=== PATIENT | female | born 1970 | race American Indian/Alaskan Native ===

== ENCOUNTER 2019-09-17 18:56 | Emergency (ER) | payer SELFPAY ==
[2019-09-17 19:20] VITALS: BP 117/47
--- NOTE | 2019-09-17 19:24 | Emergency Department Report ---
Chief Complaint: Upper Respiratory Infection Stated Complaint: FLY SYM/COUGH/VOMIT/HEADACHE Time Seen by Provider: 09/17/19 19:22 - ROS Review of Systems: Ms. Vallejo presents with hoarse voice, productive cough, runny nose. MSE performed. Provided supportive care instruction and return precautions. - Exam Vital Signs: Vital Signs 09/17/19 19:19 Temperature 98.0 F Pulse Rate 67 Respiratory 15 Rate Blood Pressure 117/47 O2 Sat by Pulse 99 Oximetry MSE screening note: Focused history and physical exam performed. Due to findings the following was ordered: ED Disposition for MSE Clinical Impression: Encounter for medical screening examination Disposition: Z- MED SCREENING EXAM-LEFT Condition: Stable Forms: Work/School Release Form(ED)
== END 2019-09-17 19:54 | disposition left against medical advice (07) ==
LOC: ED 18:56
DX: R49.0 Dysphonia (principal); R05 Cough; J34.89 Other specified disorders of nose and nasal sinuses
CPT/HCPCS: 99282

== ENCOUNTER 2021-06-17 08:34 | Inpatient (IN) | payer SELFPAY ==
--- NOTE | 2021-06-17 09:20 | Emergency Department Report ---
HPI - General Chief Complaint: Chest Pain Time Seen by Provider: 06/17/21 08:49 - HPI HPI: Room 21 The patient is a 51-year-old female present with a chief complaint of chest pain. The patient states she went to sleep last night at [address] [facility] when she was awakened this morning by her daughter screaming. The patient states she awakened and ran downstairs and by the time she got downstairs she developed left-sided chest pain shortness of breath causing her to fall to the floor. Patient denies loss of consciousness. Patient admits to nausea without vomiting and denies diaphoresis with her chest pain. Patient currently gives her chest pain score 6/10. The patient states she has received 2 vaccinations against Covid receiving her second vaccination sometime in January. Per EMS the patient was found to be hypoxic to 89% on room air upon their arrival. There is a question of whether or not the patient was having runs of V. tach and/or A. fib with EMS but EMS was unable to capture it by rhythm strip. The patient is currently satting 100% on room air in the ED ED Past Medical Hx - Past Medical History Additional medical history: thyroid cancer status post thyroidectomy. Hypothyroidism - Surgical History Additional Surgical History: Hysterectomy, Thyriodectomy - Family History Family history: no significant - Social History Smoking Status: Former Smoker (None x5-year) Substance Use Type: None (Denies illicit drug use) ED Review of Systems ROS: Stated complaint: CHEST PAIN Other details as noted in HPI Constitutional: denies: diaphoresis Eyes: denies: eye pain ENT: denies: throat pain Respiratory: shortness of breath Cardiovascular: chest pain Endocrine: no symptoms reported Gastrointestinal: nausea. denies: vomiting Genitourinary: denies: dysuria Musculoskeletal: denies: back pain Neurological: denies: headache Physical Exam - Physical Exam Vital Signs: Vital Signs 06/17/21 08:39 Temperature 97.8 F Pulse Rate 140 H Respiratory 24 Rate Blood Pressure 136/86 [Right] O2 Sat by Pulse 90 Oximetry Physical Exam: GENERAL: The patient is well-developed well-nourished female lying on stretcher not appearing to be in acute distress. [] HEENT: Normocephalic. Atraumatic. Extraocular motions are intact. Patient has moist mucous membranes. NECK: Supple. Trachea midline CHEST/LUNGS: Clear to auscultation. There is no respiratory distress noted. HEART/CARDIOVASCULAR: Regular. There is no tachycardia. There is no gallop rub or murmur. ABDOMEN: Abdomen is soft, nontender. Patient has normal bowel sounds. There is no abdominal distention. SKIN: There is no rash. There is no edema. There is no diaphoresis. NEURO: The patient is awake, alert, and oriented. The patient is cooperative. The patient has no focal neurologic deficits. The patient has normal speech. GCS 15 MUSCULOSKELETAL:There is no evidence of acute injury. ED Course Vital Signs 06/17/21 08:39 Temperature 97.8 F Pulse Rate 140 H Respiratory 24 Rate Blood Pressure 136/86 [Right] O2 Sat by Pulse 90 Oximetry ED Medical Decision Making - Lab Data Result diagrams: 06/17/21 09:19 06/17/21 09:19 Laboratory Tests 06/17/21 06/17/21 06/17/21 09:19 09:19 09:19 WBC 6.0 RBC 4.38 Hgb 12.4 Hct 37.5 MCV 86 MCH 28 MCHC 33 RDW 15.8 H Plt Count 246 Lymph % (Auto) 24.2 [place] % (Auto) 5.8 Eos % (Auto) 1.7 Baso % (Auto) 1.0 Lymph # (Auto) 1.5 [place] # (Auto) 0.3 Eos # (Auto) 0.1 Baso # (Auto) 0.1 Seg Neutrophils % 67.3 Seg Neutrophils # 4.0 D-Dimer 227.63 Sodium 144 Potassium 4.1 Chloride 110.3 H Carbon Dioxide 19 L Anion Gap 19 BUN 14 Creatinine 0.8 Estimated GFR > 60 BUN/Creatinine Ratio 18 Glucose 95 Calcium 8.7 Total Creatine Kinase 98 CK-MB (CK-2) 1.5 CK-MB (CK-2) Rel Index 1.5 Troponin T < 0.010 TSH Free T4 06/17/21 09:19 WBC RBC Hgb Hct MCV MCH MCHC RDW Plt Count Lymph % (Auto) [place] % (Auto) Eos % (Auto) Baso % (Auto) Lymph # (Auto) [place] # (Auto) Eos # (Auto) Baso # (Auto) Seg Neutrophils % Seg Neutrophils # D-Dimer Sodium Potassium Chloride Carbon Dioxide Anion Gap BUN Creatinine Estimated GFR BUN/Creatinine Ratio Glucose Calcium Total Creatine Kinase CK-MB (CK-2) CK-MB (CK-2) Rel Index Troponin T TSH 0.094 L Free T4 2.20 H - EKG Data -: EKG Interpreted by Me EKG shows normal: sinus rhythm Rate: bradycardia (58 bpm) - EKG Data When compared to previous EKG there are: previous EKG unavailable Interpretation: nonspecific ST-T wave sai (T wave inversion lead III) - Radiology Data Radiology results: report reviewed (Chest x-ray), image reviewed (Chest x-ray) interpreted by me: Chest x-ray-no definite focal infiltrates, no pneumothorax [facility] [address] [place] [address] XRay Report Signed Patient: ERNIE CASTREJON MR#: [id number] : 1970 Acct:[id number] Age/Sex: 51 / F ADM Date: 06/17/21 Loc: ED Attending Dr: Ordering Physician: GISELLE FRANCO MD Date of Service: 06/17/21 Procedure(s): XR chest 1V ap Accession Number(s): [id number] cc: GISELLE FRANCO MD Fluoro Time In Minutes: CHEST 1 VIEW INDICATION / CLINICAL INFORMATION: chest pain. COMPARISON: None available. FINDINGS: SUPPORT DEVICES: None. HEART / MEDIASTINUM: No significant abnormality. LUNGS / PLEURA: No significant pulmonary or pleural abnormality. No pneumothorax. ADDITIONAL FINDINGS: No significant additional findings. IMPRESSION: 1. No acute findings. Signer Name: Chas Baker MD Signed: 06/17/2021 11:58 AM Workstation Name: [id number] Transcribed By: SB Dictated By: CHAS BAKER MD Electronically Authenticated By: CHAS BAKER MD Signed Date/Time: 06/17/21 1158 DD/ 1157 TD/TT: Print Cancel - Differential Diagnosis ACS, pericarditis, GERD, anxiety, PE Critical care attestation.: If time is entered above; I have spent that time in minutes in the direct care of this critically ill patient, excluding procedure time. ED Disposition Clinical Impression: Chest pain, Hyperthyroidism Disposition: 09 ADMITTED INPATIENT Is pt being admited?: Yes Does the pt Need Aspirin: Yes Condition: Fair Instructions: Nonspecific Chest Pain, Adult Referrals: PRIMARY CARE, [Primary Care Provider] - 3-5 Days Time of Disposition: 12:11 (Hospitalist called (Dr. Guillory)) Heart Score - HEART Score History: Moderately suspicious EKG: Non-specific Age: 45-65 Risk factors: 1-2 risk factors Troponin: < normal limit HEART Score: 4 - EKG Read Time Time EKG Completed: 09:11 EKG Read Time: 09:15
[2021-06-17 09:53] LABS: Basophils # (Auto) 0.1 K/mm3 (0.0-0.1); Eosinophils # (Auto) 0.1 K/mm3 (0.0-0.4); Eosinophils % (Auto) 1.7 % (0.0-4.3); Hematocrit 37.5 % (30.3-42.9); Hemoglobin 12.4 gm/dl (10.1-14.3); Lymphocytes # (Auto) 1.5 K/mm3 (1.2-5.4); Lymphocytes % (Auto) 24.2 % (13.4-35.0); Mean Corpuscular HGB Conc 33 % (30-34); Mean Corpuscular Volume 86 fl (79-97); Monocytes # (Auto) 0.3 K/mm3 (0.0-0.8); Monocytes % (Auto) 5.8 % (0.0-7.3); Platelet Count 246 K/mm3 (140-440); Red Blood Count 4.38 M/mm3 (3.65-5.03); Red Cell Distribution Width 15.8 % (13.2-15.2)
[2021-06-17 10:20] LABS: BUN/Creatinine Ratio 18; Blood Urea Nitrogen 14 mg/dL (7-17); Calcium 8.7 mg/dL (8.4-10.2); Creatine Kinase MB 1.5 ng/mL (0.0-4.0); Hemolysis Index 41
[2021-06-17 10:24] LABS: Free T4 (Free Thyroxine) 2.2 ng/dL (0.76-1.46)
--- NOTE | 2021-06-17 12:02 | XRay Report ---
CHEST 1 VIEW INDICATION / CLINICAL INFORMATION: chest pain. COMPARISON: None available. FINDINGS: SUPPORT DEVICES: None. HEART / MEDIASTINUM: No significant abnormality. LUNGS / PLEURA: No significant pulmonary or pleural abnormality. No pneumothorax. ADDITIONAL FINDINGS: No significant additional findings. IMPRESSION: 1. No acute findings. Signer Name: Chas Baker MD Signed: 06/17/2021 11:58 AM Workstation Name: [id number]
[2021-06-17] MEDS ORDERED: NITROGLYCERIN 2% OINT 1 GM TP ONE (12:12)
[2021-06-17] MEDS ORDERED: ASPIRIN 325 MG TAB PO ONE (12:12)
[2021-06-17] MEDS ORDERED: ENOXAPARIN 100 MG/1 ML INJ SUB-Q ONE (12:35)
[2021-06-17] MEDS ORDERED: HYDROmorphone 1 MG/1 ML INJ IV PRN (12:37)
[2021-06-17] MEDS ORDERED: ALBUTEROL 2.5 MG/3 ML NEBU IH PRN (12:37)
[2021-06-17] MEDS ORDERED: ONDANSETRON 4 MG/2 ML INJ IV PRN (12:37)
[2021-06-17] MEDS ORDERED: ASPIRIN 81 MG TAB CHEW PO STA (12:37)
[2021-06-17] MEDS ORDERED: oxyCODONE /ACETAMINOPHEN 5-325MG TAB PO PRN (12:37)
[2021-06-17] MEDS ORDERED: ACETAMINOPHEN 325 MG TAB PO PRN (12:37)
--- NOTE | 2021-06-17 12:40 | History and Physical Report ---
History of Present Illness Chief complaint: I am having chest pain History of present illness: 51 YO Female HTN, Obesity Hypoventilation Syndrome, Hypothyroidism, Thyroid Cancer S/P Thyroidectomy presents to ED for evaluation. Patient reports "I am having chest pain". Patient states that she experienced a sudden onset of chest pain after being awakened from sleep and running down stairs after being startled by a family member. Patient states that pain is 6/10, constant, substernal, radiating to the left chest, worsened with exertion, relieved with rest, associated with shortness of breath. EMS was notified and upon arrival the patient was found to be in distress and subsequent transported to [facility] for further care and evaluation of the aforementioned symptoms. The patient was found to have clinical symptoms consistent with ACS, as well as elevated troponins consistent with NSTEMI as well as abnormal EKG findings. Cardiology team consulted in ED. Patient admitted to telemetry and initiated on therape utic anticoagulation. Patient denies fever, chills, palpitation, productive cough, skin rash, recent ill contact, or known exposure to COVID-19. No prior admission for review. No medication listed at time of admission for reconciliation. Advanced care planning conducted in ED. Patient is fully vaccinated against coronavirus. Past History Past Medical History: cancer, hypertension, other (see hpi) Past Surgical History: thyroidectomy, hysterectomy Social history: single. denies: smoking, alcohol abuse Family history: hypertension Medications and Allergies Allergies Allergy/AdvReac Type Severity Reaction Status Date / Time meperidine [From Demerol] Allergy Itching Verified 09/17/19 19:15 Review of Systems Constitutional: no weight loss, no weight gain, no fever, no chills Ears, nose, mouth and throat: no ear pain, no tinnitis, no decreased hearing, no nose pain, no nasal discharge Breasts: no change in shape, no swelling Cardiovascular: chest pain, shortness of breath, dyspnea on exertion, decreased exercise tolerance Respiratory: no cough, no cough with sputum, no excessive sputum, no hemoptysis Gastrointestinal: no nausea, no vomiting, no diarrhea, no constipation Genitourinary Female: no pelvic pain, no flank pain, no menorrhagia, no dysuria, no urinary frequency, no urgency Rectal: no pain, no incontinence, no bleeding Musculoskeletal: no neck stiffness, no neck pain, no arm numbness/tingling, no shooting leg pain, no leg numbness/tingling Integumentary: no rash, no pruritis, no redness, no sores, no jaundice Neurological: no head injury, no transient paralysis, no weakness, no parathesias, no numbness, no tingling Psychiatric: no anxiety, no change in sleep habits, no sleep disturbances, no hypersomnia, no change in appetite, no change in libido Endocrine: no cold intolerance, no heat intolerance, no polyphagia, no polydipsia, no polyuria, no excessive sweating Hematologic/Lymphatic: no easy bruising, no easy bleeding, no lymphadenopathy, no lymphedema Allergic/Immunologic: no urticaria, no wheezing, no anaphylaxis Exam - Constitutional Vitals: Temp Pulse Resp BP Pulse Ox 98.1 F 60 23 102/54 99 06/17/21 09:17 06/17/21 11:01 06/17/21 11:01 06/17/21 11:01 06/17/21 11:01 General appearance: Present: mild distress, obese - EENT Eyes: Present: PERRL ENT: hearing intact, clear oral mucosa - Neck Neck: Present: supple, normal ROM - Respiratory Respiratory effort: normal Respiratory: bilateral: CTA - Cardiovascular Heart Sounds: Present: S1 & S2. Absent: rub, click - Extremities Extremities: pulses symmetrical, No edema Peripheral Pulses: within normal limits - Abdominal General gastrointestinal: Present: soft, non-tender, non-distended, normal bowel sounds Female genitourinary: Present: normal - Integumentary Integumentary: Present: clear, warm, dry - Musculoskeletal Musculoskeletal: gait normal, strength equal bilaterally - Psychiatric Psychiatric: appropriate mood/affect, intact judgment & insight - Neurologic Neurologic: CNII-XII intact, moves all extremities HEART Score - HEART Score EKG: Non-specific Age: 45-65 Risk factors: 1-2 risk factors Troponin: Troponin T < 0.010 ng/mL (0.00-0.029) 06/17/21 09:19 Troponin: < normal limit Results - Labs CBC & Chem 7: 06/17/21 09:19 06/17/21 09:19 Labs: Abnormal lab results 06/17/21 06/17/21 06/17/21 Range/Units 09:19 09:19 09:19 RDW 15.8 H (13.2-15.2) % Chloride 110.3 H (98-107) mmol/L Carbon Dioxide 19 L (22-30) mmol/L TSH 0.094 L (0.270-4.200) mlU/mL Free T4 2.20 H (0.76-1.46) ng/dL Assessment and Plan - Patient Problems (1) NSTEMI (non-ST elevated myocardial infarction) Current Visit: Yes Status: Acute Plan to address problem: ACS protocol: Serial cardiac enzymes, EKG, telemetry monitoring, therapeutic anticoagulation, cardiology team consulted in ED. Further testing as per cardiology team. (2) Angina at rest Current Visit: Yes Status: Acute Plan to address problem: ACS protocol: Serial cardiac enzymes, EKG, telemetry monitoring, therapeutic anticoagulation, morphine, supplemental oxygen, nitro, aspirin. (3) Obesity hypoventilation syndrome Current Visit: Yes Status: Acute Plan to address problem: Balanced diet, increase physical activity at discharge, outpatient pulmonary follow-up for sleep study. (4) HTN (hypertension) Current Visit: Yes Status: Acute Qualifiers: Hypertension type: primary hypertension Qualified Code(s): I10 - Essential (primary) hypertension Plan to address problem: Monitor blood pressure every shift, continue medical management. (5) Metabolic syndrome Current Visit: Yes Status: Acute Plan to address problem: Risk factor reduction: Weight loss, low-cholesterol diet, statin therapy as clinically indicated, supportive care. (6) GERD (gastroesophageal reflux disease) Current Visit: Yes Status: Acute Qualifiers: Esophagitis presence: without esophagitis Qualified Code(s): K21.9 - Gastro-esophageal reflux disease without esophagitis Plan to address problem: PPI therapy, supportive care. (7) DVT prophylaxis Current Visit: Yes Status: Acute Plan to address problem: SCD to bilateral lower extremities while in bed, continue therapeutic anticoagulation (8) Advance care planning Current Visit: Yes Status: Acute Plan to address problem: Disease education conducted, care plan discussed, diagnoses discussed, prognosis discussed, patient is full code. Patient counseled regarding risk factor reduction. Care plan discussed. Patient acknowledges understanding and agreement with care plan, +30 minutes.
[2021-06-17] MEDS ORDERED: FAMOTIDINE 10 MG TAB PO SCH (22:00)
[2021-06-18 06:44] LABS: Blood Urea Nitrogen 10 mg/dL (7-17); Calcium 8.5 mg/dL (8.4-10.2); Chol/HDL Ratio 3.33 %; HDL Cholesterol 45 mg/dL (40-59); Hemolysis Index 3; LDL Cholesterol,Direct 98 mg/dL (50-130)
[2021-06-18 06:47] LABS: BUN/Creatinine Ratio 14
[2021-06-18 13:03] VITALS: BP 113/47
--- NOTE | 2021-06-18 13:38 | Consultation ---
History of Present Illness Consult date: 06/18/21 Requesting physician: GISELLE FRANCO Consult reason: chest pain History of present illness: Patient is a 51-year-old female with past medical history of hypothyroidism,GERD, hypertension, thyroid cancer status post thyroidectomy who presented to the ED for complaint of chest pain that started 1 day prior to admission. Patient described pain as constant and substernal and she rated the pain 6 out of 10 that was worsened with exertion. Patient denies shortness of breath, dyspnea on exertion, nausea, vomiting, palpitations, or diaphoresis. At time of interview patient was currently chest pain-free and reported feeling much better. Patient is previously unknown to our practice. Cardiology is consulted for chest pain. Past History Past Medical History: cancer, hypertension, other (see hpi) Past Surgical History: thyroidectomy, hysterectomy Social history: single. denies: smoking, alcohol abuse Family history: hypertension Medications and Allergies Allergies Allergy/AdvReac Type Severity Reaction Status Date / Time Latex, Natural Rubber Allergy Itching Verified 06/18/21 11:06 meperidine [From Demerol] Allergy Itching Verified 09/17/19 19:15 Home Medications Medication Instructions Recorded Confirmed Last Taken Type Levothyroxine Sodium 200 mcg PO QDAY 06/18/21 06/18/21 06/16/21 History [Levothyroxine] Active Meds: Active Medications Acetaminophen (Acetaminophen 325 Mg Tab) 650 mg PO Q4H PRN PRN Reason: Pain MILD(1-3)/Fever >100.5/BOYCE Albuterol (Albuterol 2.5 Mg/3 Ml Nebu) 2.5 mg IH Q4H PRN PRN Reason: Shortness Of Breath Atorvastatin Calcium (Atorvastatin 40 Mg Tab) 40 mg PO QHS [facility] Last Admin: 06/17/21 23:09 Dose: Not Given Documented by: Famotidine (Famotidine 10 Mg Tab) 10 mg PO BID [facility] Last Admin: 06/17/21 23:14 Dose: Not Given Documented by: Hydromorphone HCl (Hydromorphone 1 Mg/1 Ml Inj) 0.5 mg IV Q23H PRN PRN Reason: Pain , Severe (7-10) Ondansetron HCl (Ondansetron 4 Mg/2 Ml Inj) 4 mg IV Q8H PRN PRN Reason: Nausea And Vomiting Oxycodone/Acetaminophen (Oxycodone /Acetaminophen 5-325mg Tab) 1 tab PO Q16H PRN PRN Reason: Pain, Moderate (4-6) Sodium Chloride (Sodium Chloride 0.9% 10 Ml Flush Syringe) 10 ml IV BID ABBEY Last Admin: 06/17/21 23:09 Dose: 10 ml Documented by: Sodium Chloride (Sodium Chloride 0.9% 10 Ml Flush Syringe) 10 ml IV PRN PRN PRN Reason: LINE FLUSH Review of Systems Constitutional: no weight loss, no weight gain, no fever Ears, nose, mouth and throat: no nasal congestion, no nasal discharge, no sinus pressure Cardiovascular: no chest pain, no orthopnea, no palpitations, no syncope Respiratory: no shortness of breath, no dyspnea on exertion Gastrointestinal: no abdominal pain, no nausea, no vomiting, no diarrhea Musculoskeletal: no neck stiffness, no neck pain Integumentary: no rash, no pruritis, no redness, no wounds Neurological: no weakness, no parathesias, no numbness Psychiatric: no anxiety, no memory loss Endocrine: no cold intolerance, no heat intolerance Hematologic/Lymphatic: no easy bruising, no easy bleeding Physical Examination Vital Signs Temp Pulse Resp BP Pulse Ox 97.8 F 140 H 24 136/86 90 06/17/21 08:39 06/17/21 08:39 06/17/21 08:39 06/17/21 08:39 06/17/21 08:39 General appearance: no acute distress HEENT: Positive: PERRL Neck: Positive: trachea midline Cardiac: Positive: Reg Rate and Rhythm Lungs: Positive: Normal Breath Sounds Neuro: Positive: Grossly Intact Abdomen: Positive: Soft Skin: Negative: Rash, Suspicious Lesions, Ulceration Extremities: Present: upper extr. pulses. Absent: edema Results 06/17/21 09:19 06/18/21 06:01 Lipids 06/18/21 Range/Units 06:01 Triglycerides 61 (2-149) mg/dL Cholesterol 150 (50-199) mg/dL HDL Cholesterol 45 (40-59) mg/dL Cholesterol/HDL Ratio 3.33 % Comprehensive Metabolic Panel 06/18/21 Range/Units 06:01 Sodium 143 (137-145) mmol/L Potassium 4.1 (3.6-5.0) mmol/L Chloride 109.1 H (98-107) mmol/L Carbon Dioxide 24 (22-30) mmol/L BUN 10 (7-17) mg/dL Creatinine 0.7 (0.6-1.2) mg/dL Glucose 96 (65-100) mg/dL Calcium 8.5 (8.4-10.2) mg/dL EKG interpretations - Telemetry EKG Rhythm: Sinus Rhythm - EKG Sinus rhythms and dysrhythmias: sinus rhythm AV and intraventricular conduction: left anterior fascicular Assessment and Plan Patient is a 51-year-old female with past medical history of hypothyroidism,GERD, hypertension, thyroid cancer status post thyroidectomy who presented to the ED for complaint of chest pain that started 1 day prior to admission Atypical chest pain HTN Hypothyroidsim Thyriod cancer s/p thyroidectomy Obesity Plan: EKG shows sinus 57 with no acute ischemic changes. Troponins negative x3. Patient currently chest pain-free AMI ruled out. Thallium stress test 06/18/2021-negative for signs of ischemia Patient cardiac status is stable. Will sign off Patient may follow-up with Dr. Rivera, [facility] protein specialist, in 1 to 2 weeks after discharge. Phone [phone]. Patient seen in conjunction with Dr. Rivera who agrees with this plan of care - Patient Problems (1) Chest pain Current Visit: Yes Status: Acute (2) Obesity hypoventilation syndrome Current Visit: Yes Status: Acute (3) HTN (hypertension) Current Visit: Yes Status: Acute Qualifiers: Hypertension type: primary hypertension Qualified Code(s): I10 - Essential (primary) hypertension (4) Metabolic syndrome Current Visit: Yes Status: Acute (5) GERD (gastroesophageal reflux disease) Current Visit: Yes Status: Acute Qualifiers: Esophagitis presence: without esophagitis Qualified Code(s): K21.9 - Gastro-esophageal reflux disease without esophagitis
--- NOTE | 2021-06-18 16:09 | Discharge Summary ---
Providers - Providers Date of Admission: 06/17/21 12:37 Attending physician: SINDI SUH MD 06/17/21 Consult to Cardiac Rehabilitation [CONS] Routine Reason For Exam: Phase 1 06/17/21 12:36 Consult to Physician [CONS] Urgent Comment: Consulting Provider: HERMINIA GARSIA Physician Instructions: Reason For Exam: Chest pain Primary care physician: SENIOR ARCHITECTURAL DESIGNER Hospitalization Condition: Stable Hospital course: 51 YO Female morbid obesity, obesity hypoventilation Syndrome, Hypothyroidism, Thyroid Cancer S/P Thyroidectomy has no known history of CAD. Patient moved from [place] more than a year ago and he did not establish a primary care physician here. She uses [facility] to get her prescriptions filled. Did not have oncology endocrinology follow-up for thyroid cancer. No recent labs. See start experiencing shortness of breath and left-sided chest pains after running down stairs at home. CBC, CMP, D-dimer unremarkable. Troponin x3 normal. TSH 0.094 and a free T4 2.20. Lipid profiletriglycerides 61, total cholesterol 150, LDL 98, HDL 45. EKG unremarkable except antifascicular block. Patient was evaluated by cardiology in consultation. She underwent nuclear stress test which was negative. Patient remained asymptomatic since admitted with hemodynamic stability. Cardial recommended discharging patient. Cardiolo gy advised outpatient follow-up in 2 weeks. Discharge diagnoses: Exertional chest pain with dyspnea, with a negative cardiac work-up Morbid obesity Obesity hypoventilation syndrome Thyroid cancer, s/p thyroidectomy, on levothyroxine Disposition: 01 HOME / SELF CARE / HOMELESS Final Discharge Diagnosis (Prints w/discharge instructions): Exertional chest pain with dyspnea, with a negative cardiac work-up. Morbid obesity. Obesity hypoventilation syndrome. Thyroid cancer, s/p thyroidectomy, on levothyroxine Core Measure Documentation - Palliative Care Palliative Care/ Comfort Measures: Not Applicable - Core Measures Any of the following diagnoses?: none Exam - Constitutional Vitals: Temp Pulse Resp BP Pulse Ox 98.6 F 60 18 113/47 99 06/18/21 04:43 06/18/21 09:12 06/18/21 04:43 06/18/21 11:31 06/18/21 09:12 General appearance: Present: no acute distress, obese - EENT Eyes: Present: PERRL, EOM intact ENT: hearing intact - Neck Neck: Present: supple - Respiratory Respiratory effort: normal Respiratory: bilateral: CTA - Cardiovascular Rhythm: regular - Extremities Extremities: No edema - Abdominal General gastrointestinal: Present: soft, tender, other - Integumentary Integumentary: Absent: rash - Psychiatric Psychiatric: appropriate mood/affect - Neurologic Neurologic: no focal deficits, moves all extremities Plan Activity: advance as tolerated Diet: low fat Additional Instructions: Your heart stress test is normal. Have a follow-up with endocrinology in a week Follow up with: PRIMARY CAREMD [Primary Care Provider] - 3-5 Days OBIE LUNA MD [Staff Physician] - 14 Days
--- NOTE | 2021-06-19 11:10 | Electrocardiograph Report ---
[facility] Test Date: 2021-06-18 Test Time: 07:50:56 Pat Name: ERNIE CASTREJON Department: Room: A471 1 Gender: F Lithoplate Maker: QAMAR : 1970 Requested By: IAM NIELSEN Order Number: [id number] Reading MD: Masoud Rivera Measurements Intervals [place] Rate: 57 P: 37 CA: 183 QRS: -59 QRSD: 87 T: 53 QT: 421 QTc: 409 Interpretive Statements Sinus rhythm Left anterior fascicular block Consider anterior infarct Compared to ECG 06/17/2021 09:11:54 No significant change noted. Electronically Signed On 06-19-2021 11:09:52 EST by Masoud Rivera
== END 2021-06-18 17:16 | disposition home or self-care (01) | DRG 313 ==
LOC: ED 08:34 → 4A 12:37
PROVIDERS: ADMIT Internal Medicine; ATTEND Internal Medicine
DX: R07.89 Other chest pain (principal); E66.2 Morbid (severe) obesity with alveolar hypoventilation; Z68.42 Body mass index [BMI] 45.0-49.9, adult; I10 Essential (primary) hypertension; Z87.891 Personal history of nicotine dependence; E05.90 Thyrotoxicosis, unspecified without thyrotoxic crisis or storm; Z82.49 Family history of ischemic heart disease and other diseases of the circulatory system; E88.81 Metabolic syndrome and other insulin resistance; K21.9 Gastro-esophageal reflux disease without esophagitis; I25.10 Atherosclerotic heart disease of native coronary artery without angina pectoris; Z91.040 Latex allergy status; Z88.8 Allergy status to other drugs, medicaments and biological substances; Z91.048 Other nonmedicinal substance allergy status
CPT/HCPCS: 36415; 71045; 78452; 80048; 80061; 82550; 82553; 82962; 84439; 84443; 84484; 85025; 85379; 93005; 93017; G0378; A9502